=== PATIENT | male | born 1995 | race Caucasian/White ===

== ENCOUNTER 2016-12-26 06:47 | Day surgery (SDC) | payer BC ==
[2016-12-26] MEDS ORDERED: Lactated Ringers 1,000 ML IV SCH (07:00)
[2016-12-26] MEDS ORDERED: Sodium Chloride 0.9% 10 ML Syringe FLUSH PRN (07:00)
[2016-12-26] MEDS ORDERED: Midazolam 1 MG/ML 2 ML SDV IV ONE (08:30)
[2016-12-26] MEDS ORDERED: Propofol 200 MG/20 ML SDV IV ONE (08:30)
--- NOTE | 2016-12-26 08:51 | PCM.OPNOTE ---
- General Post-Op/Procedure Note Date of Surgery/Procedure: 12/26/16 Operative Procedure(s): c scope with bx Findings: normal terminal ileum and colon Pre Op Diagnosis: diarrhea Post-Op Diagnosis: normal terminal ileum and colon Anesthesia Technique: MAC Primary Surgeon: Rodney Ashford Anesthesia Provider: Maxine Cruz Pathology: terminal ileum and random colon bx Complications: None Condition: Good Free Text/Narrative:: see dictation
--- NOTE | 2016-12-26 09:28 | OR ---
DATE OF OPERATION: 12/26/2016 SURGEON: Rodney Ashford MD PROCEDURE PERFORMED: Colonoscopy with cold forceps biopsy. PREOPERATIVE DIAGNOSIS: Diarrhea. POSTOPERATIVE DIAGNOSIS: Normal terminal ileum and colon. INDICATIONS FOR PROCEDURE: This is a 21-year-old, white male, who is referred with a history of loose stools. He was offered and accepted colonoscopy. DESCRIPTION OF OPERATION: After an excellent IV sedation was administered, digital rectal exam was performed. No marked abnormality was noted. The flexible colonoscope was inserted and advanced to the cecum without difficulty. The following findings were noted. On intubation of the terminal ileum, no gross mucosal abnormalities were noted. Biopsies were taken. Ascending colon, unremarkable. Biopsies were taken. Transverse colon, unremarkable. Random biopsies taken. Descending colon, unremarkable. Random biopsies were taken. Sigmoid and rectum unremarkable. Random biopsies were taken. The colon was deflated, and scope was removed. The patient tolerated the procedure well. /[id number] LYNNE/FRANCISCA
[2016-12-26 09:38] VITALS: BP 123/61
== END 2016-12-26 09:52 | disposition home or self-care (01) ==
LOC: FB.SDS 06:47
PROVIDERS: ATTEND Surgery
DX: K31.89 Other diseases of stomach and duodenum (principal); F17.210 Nicotine dependence, cigarettes, uncomplicated
CPT/HCPCS: 45380; 88305; J2250; J2704; J7120